=== PATIENT | male | born 1995 | race Hispanic/Latino ===

== ENCOUNTER → 2025-08-15 | Outpatient (CLI) | payer MEDICARE ==
[2025-08-15 22:00] VITALS: PULSE 93; RESP 12
[2025-08-15 22:31] VITALS: PULSE 73; RESP 14
[2025-08-15 23:08] VITALS: PULSE 74; RESP 18
[2025-08-15 23:29] VITALS: PULSE 72; RESP 18
[2025-08-15 23:59] VITALS: PULSE 69; RESP 14
[2025-08-16] VITALS (11 sets, daily range): PULSE 59–79; RESP 12–18
== END | disposition home or self-care (01) ==
LOC: SLP 20:13
PROVIDERS: ATTEND Family Medicine
DX: G47.33 Obstructive sleep apnea (adult) (pediatric) (principal); G47.00 Insomnia, unspecified; R40.0 Somnolence
CPT/HCPCS: 95810

== ENCOUNTER → 2025-08-22 | Outpatient (CLI) | payer MEDICARE, MEDICAID ==
[2025-08-22 21:41] VITALS: PULSE 69; RESP 14
[2025-08-22 22:00] VITALS: PULSE 65; RESP 16
[2025-08-22 22:36] VITALS: PULSE 65; RESP 10
[2025-08-22 23:00] VITALS: PULSE 68; RESP 9
[2025-08-22 23:36] VITALS: PULSE 70; RESP 9
[2025-08-22 23:45] VITALS: PULSE 70; RESP 10
[2025-08-23] VITALS (19 sets, daily range): PULSE 51–65; RESP 7–16
--- NOTE | 2025-08-30 11:18 | NUR ---
CPAP AT 8 RECOMMENDED AT A SETTING INITIAL SETUP WITH CONSIDERATION OF 12 IF PATIENT CONTINUES WITH SYMPTOMS Addendum: 08/30/25 at 1120 by ALEXIA COLEMAN Amended: Links added.
== END | disposition home or self-care (01) ==
LOC: SLP 20:21
PROVIDERS: ATTEND Family Medicine
DX: G47.33 Obstructive sleep apnea (adult) (pediatric) (principal); R40.0 Somnolence; G47.00 Insomnia, unspecified
CPT/HCPCS: 95811